=== PATIENT | female | born 2000 | race Caucasian/White ===

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

== ENCOUNTER 2024-06-06 10:12 | Outpatient (CLI) | payer OTHER, SELFPAY ==
--- NOTE | 2024-06-06 10:00 | CRLHL7_ITS ---
For Patients: As a result of the Century Cures Act, medical imaging exams and procedure reports are released immediately into your electronic medical record. You may view this report before your referring provider. If you have questions, please contact your health care provider. OB ULTRASOUND LESS THAN 14 WEEKS, 06/06/2024 CLINICAL HISTORY: Dating, viability. COMPARISON: None. TECHNIQUE: Real time whaley scale imaging of the fetus was performed transvaginally. FINDINGS: LMP: 04/08/2024. YUDELKA by LMP: 01/13/2025. GA: 8 weeks 3 days. CRL: 2.7 cm, 9 weeks 4 days. YUDELKA: 01/05/2025. FHR: 183 bpm. GEST SAC: 4.3 cm, appears within normal limits. YOLK SAC: 3.6 cm, appears within normal limits. RIGHT OVARY: Not visualized. LEFT OVARY: Not visualized. IMPRESSION: 1. Single living intrauterine measuring 9 weeks 4 days and sonographic due date 01/05/2025. 2. Subchorionic hemorrhage measures 3.0 x 0.8 x 3.5 cm. 3. Ovaries not visualized. Peterson Cazares M.D. Diagnostic Radiologist [email or web address] Transcribed: 12:42 pm DW/Dictated by: Peterson Cazares MD @ 06/06/2024 12:07:00 PM (Electronically Signed)
== END 2024-06-06 10:13 | disposition home or self-care (01) ==
LOC: US 10:13
PROVIDERS: Visit Provider Physician Assistant
DX: Z34.91 Encounter for supervision of normal pregnancy, unspecified, first trimester (principal); O20.9 Hemorrhage in early pregnancy, unspecified; Z3A.09 9 weeks gestation of pregnancy
CPT/HCPCS: 76817; 83021; 86592; 86701; 86702; 86703; 86704; 86706; 86762; 86787; 86803; 86850; 86900; 86901; 87086; 87340; 87491; 87591

== ENCOUNTER 2024-06-06 11:23 | Outpatient (CLI) | payer OTHER, SELFPAY ==
[2024-06-06 17:33] LABS: Chlamydia DNA Amplified* NOT DETECTED (No Detected); GC DNA Amplified* NOT DETECTED (No Detected)
== END 2024-06-06 11:24 | disposition home or self-care (01) ==
PROVIDERS: Visit Provider Physician Assistant
DX: Z34.01 Encounter for supervision of normal first pregnancy, first trimester (principal)
CPT/HCPCS: 83020; 83021; 85660; 86592; 86701; 86702; 86703; 86704; 86706; 86762; 86787; 86803; 86850; 86900; 86901; 87086; 87340; 87491; 87535; 87538; 87591

== ENCOUNTER 2024-07-04 11:12 | Outpatient (CLI) | payer OTHER, SELFPAY | END 2024-07-04 11:13 | disposition home or self-care (01) | LOC: NFLDREF 11:15 | PROVIDERS: Visit Provider Obstetrics & Gynecology | DX: F12.20 Cannabis dependence, uncomplicated (principal) | CPT/HCPCS: 80306 ==

== ENCOUNTER 2024-08-22 07:08 | Outpatient (CLI) | payer OTHER, MEDICAID, SELFPAY ==
--- NOTE | 2024-08-22 07:15 | CRLHL7_ITS ---
For Patients: As a result of the Century Cures Act, medical imaging exams and procedure reports are released immediately into your electronic medical record. You may view this report before your referring provider. If you have questions, please contact your health care provider. OB ULTRASOUND GREATER THAN 14 WEEKS, 08/22/2024 CLINICAL HISTORY: anatomic survey. COMPARISON: None. TECHNIQUE: Real time whaley scale imaging of the fetus was performed. Evaluate anatomy. Transabdominal imaging performed. FINDINGS: LMP: 04/08/2024. YUDELKA by US: 01/05/2025. GA: 20 weeks 2 days. POSITION: Breech. PLACENTA/CORD: Placenta Position: Anterior. Placenta tip to internal OS: 5.1 cm. Umbilical Cord: 3 vessel cord. Placental Insertion: Central. AMNIOTIC FLUID: 4.4 cm SDP. CERVIX: Visualized. Technique: TA. Length of closed cervix: 3.8 cm. OBSERVED STRUCTURES: Calvarium/Spine: Cerebellum 2.1 cm, 21 weeks 2 days Cisterna Magna 7.2 mm Nuchal Fold 5.7 mm Lateral Ventricle 6.6 mm CSP Midline Falx Choroid Plexus Spine Abdomen: Stomach Abd Cord Insert Urinary Bladder Kidneys Face: Nose/Lips Orbital View Limbs: Upper Extremities Lower Extremities Hands Feet Vascular: 4 Ch Heart LVOT IMPRESSION: 1. Left renal pelvis measures 4 mm. Right renal pelvis measures 3.4 mm. Follow-up in the third trimester recommended. 2. Incomplete visualization of the diaphragm, profile and RVOT due to position. Short-term follow-up recommended. 3. Concordance of clinical and sonographic dating. Peterson Cazares M.D. Diagnostic Radiologist [email or web address] Transcribed: 11:33 am DW/Dictated by: Peterson Cazares MD @ 08/25/2024 6:32:00 AM (Electronically Signed)
== END 2024-08-22 07:09 | disposition home or self-care (01) ==
PROVIDERS: Visit Provider Obstetrics & Gynecology
DX: Z34.92 Encounter for supervision of normal pregnancy, unspecified, second trimester (principal); Z3A.20 20 weeks gestation of pregnancy
CPT/HCPCS: 76805

== ENCOUNTER 2024-09-12 09:55 | Outpatient (CLI) | payer OTHER, MEDICAID, SELFPAY ==
--- NOTE | 2024-09-12 10:00 | CRLHL7_ITS ---
For Patients: As a result of the Century Cures Act, medical imaging exams and procedure reports are released immediately into your electronic medical record. You may view this report before your referring provider. If you have questions, please contact your health care provider. OB ULTRASOUND SURVEY LMP: 04/08/2024. YUDELKA by US: 01/05/2025. GA: 23 w, 4 d. Single Comparison: 08/22/2024 and 06/06/2024. INDICATION: Follow-up anatomy. TECHNIQUE: Real time grayscale imaging of the fetus was performed. Transabdominal. CERVIX: Visualized. Measurement: 3.4 cm. POSITIONING: Vertex, multiple. AMNIOTIC FLUID: 5.6 cm. SDP (N: greater than 2 x 1 cm) PLACENTA: Technique: Transabdominal. PLACENTA POSITION: Anterior. DOPPLER: heart rate: 145 bpm. IMPRESSION: 1. Normal diaphragm, RVOT, and profile. 2. Right renal pelvis measures 3.1 mm. Left renal pelvis measures 4.7 mm. Third trimester follow-up again recommended. Peterson Cazares M.D. Diagnostic Radiologist [email or web address] GUERA/[email or web address] rankin/Dictated by: Peterson Cazares MD @ 09/12/2024 4:06:00 PM (Electronically Signed)
--- OUTSIDE RECORDS SUMMARY | 2024-09-13 00:29 | XMS_ITS | Clinical Summary ---
Author Organization [facility] Address [address] [place] [id number] Care Team Providers Care Project Accountant Name Role Phone Ayse Rodrigues MD Primary Care Provider Allergies No known active allergies Medications ondansetron 4 mg disintegrating tabletIndications:N ausea DISSOLVE 1 TABLET(4 MG) ON THE TONGUE EVERY 8 HOURS NEEDED FOR NAUSEA OR VOMITING 14 Tablet 5 Active Active Problems Problem Noted Date Diagnosed Date History of reactive airway disease 05/29/2016 Overview (05/29/2016): Per patient and family, had albuterol for 1 episode of wheezing in the past. Encounters Date Type Department Care Team Description 07/14/[address] [facility] [address] [place] [address] Chrissy Chavira 1 scan: (1-Ord) Zio 07/10/2024 1:30 PM CDT Office Visit [facility] [address] [place] [address] Giorgio Talbert MD 06/17/2024 Telephone [facility] [address] [place] [address] Tereza Meredith DO Appointment from Last 3 Months Immunizations Immunization Administration Dates Next Due DTaP-IPV (Kinrix) 04/11/2007 HPV 9 (Gardasil 9) 10/27/2014 Inactivated Polio Vaccine 04/11/2007 Influenza A (H1N1), Inactivated 01/14/2009 Influenza, IIV4 (=>6mos) MDV 01/06/2020 MENINGOCOCCAL VACCINE 2 VIAL 2MO-55YO (MENVEO) 1 03/27/2017,10/27/2014 MMR 01/25/2018,04/11/2007 Tdap 10/27/2014 Varicella Vaccine 04/11/2020,04/11/2007 Family History Medical History Relation Name Comments Asthma Brother 1 No Known Problems Father No Known Problems Mother Relation Name Status Comments Brother 1 Alive Brother 2 Alive Father Alive Mother Alive Sister Alive Social History Tobacco Use Types Packs/Day Years Used Date Smoking Tobacco: Never Smokeless Tobacco: Never Tobacco Cessation:Counseling Given: Not Answered Alcohol Use Standard Drinks/Week Comments Not Currently 0 (1 standard drink = 0.6 oz pur e alcohol) PHQ-2 Answer Date Recorded PHQ-2 TOTAL SCORE 1 06/22/2022 Social Connections Answer Date Recorded Frequency of Communication with Friends and Fami ly 0 06/22/2022 Financial Resource Strain Answer Date R ecorded Difficulty of Paying Living Expenses 3 06/22/2022 Difficulty of Paying Living Expenses Not on file 06/22/2022 Food Insecurity Answer Date Recorded Worried About Running Out of Food in the Last Ye ar 2 06/22/2022 Transportation Needs Answer Date Record ed Lack of Transportation (Medical) 1 06/22/2022 Housing Stability Answer Date Recorded Unable to Pay for Housing in the Last Year 1 06/22/2022 Interpersonal Safety Answer Date Record ed Are you being hit, kicked, p ushed or yelled at (see row info)? No 09/30/2023 Interpersonal Safety Abuse 12 - 18 Not on file 09/30/2023 Interpersonal Safety Ambulatory Vulnerability No t on file 09/30/2023 Comments No Sex and Gender Information Value Date Recorded Sex Assigned at Not on file Legal Sex Female 5:26 AM AFLOAT CRYPTOLOGIC MANAGER Gender Identity Not on file Sexual Orientation Not on file Obstetrics History Last Filed Vital Signs Vital Sign Reading Time Taken Comments Blood Pressure 100/68 05/16/2024 8:33 AM AFLOAT CRYPTOLOGIC MANAGER Pulse 72 05/16/2024 8:33 AM AFLOAT CRYPTOLOGIC MANAGER Temperature 36.7 C (98.1 F) 04/05/2024 2:00 PM AFLOAT CRYPTOLOGIC MANAGER Respiratory Rate 14 04/05/2024 2:00 PM AFLOAT CRYPTOLOGIC MANAGER Oxygen Saturation 97% 04/05/2024 2:00 PM AFLOAT CRYPTOLOGIC MANAGER Inhaled Oxygen Concentration - - Weight 104.4 kg (230 lb 3.2 oz) 05/16/2024 8:33 AM AFLOAT CRYPTOLOGIC MANAGER Height 158.8 cm (5' 2.5) 09/30/2023 10 :02 AM CDT Body Mass Index 41.43 09/30/2023 10:02 AM CDT Plan of Treatment Health Maintenance Due Date Last Done Comments HPV series for age 9-26 (2 - 2-dose series) 04/29/2015 10/27/2014 HIV for age 15-65 2017 Hepatitis C screening for ag e 18-79 2020 Hepatitis B series for 19+ ( 1 of 3 - 19+ 3-dose series) 2021 Pap test for age 21-65 2023 BMI (ht and wt on same day) for age 18+ 06/23/2023 06/22/2022 Depression screening for age 12+ 06/23/2023 06/22/2022, 08/20/2017, 05/29/2016 COVID-19 vaccine series ( - season) 2023 Chlamydia for age 16-24 10/15/2024 10/16/19 24, 04/25/2022 Tetanus booster 10/27/2024 10/27/2014 Influenza Vaccine (Season Ended) 2024 01/06/2020 Tdap Completed 10/27/2014 Pneumococcal series for age 6-49 Aged Out No longer eligible b ased on patient's age to complete this topic Procedures Procedure Name Priority Date/Time Associated Diagnosis Comments EXTENDED HOLTER Routine 07/04/2024 Syncope and collapse GC CHLAMYDIA TRACH PROBE Add On 10/16/2023 2:13 PM CDT Vaginal discharge from Last 3 Months or Most Recently Relevant to Health Maintenance Results * EXTENDED HOLTER (07/04/2024) us Renetta Morales MD CARDIAC SERVICES ORD Fin al Result * Vaginal GC CHLAMYDIA TRACH PROBE (10/16/2023 2:13 PM CDT) CHLAMYDIA PROBE Negative 5:44 PM CDT [facility] N GONORRHOEAE PROBE Negative 10/17/2023 5:44 PM CDT [facility] Other VAGINAL SWAB / Unknown Add On / Unknown 10/16/2023 2:13 PM CDT 10/16/2023 2:28 PM CDT us Milagro Patterson NP MICROBIOLOGY Final Result [facility] [address] [place] [address], [place] from Last 3 Months or Most Recently Relevant to Health Maintenance Insurance [employer] [place] [id number] [employer] Care Teams Project Accountant Relationship Specialty Start Date End Date Ayse Rodrigues MD [address] [place] [address] PCP - General Family Practice 06/22/22
== END 2024-09-12 09:56 | disposition home or self-care (01) ==
LOC: US 09:55
PROVIDERS: Visit Provider Obstetrics & Gynecology
DX: Z34.92 Encounter for supervision of normal pregnancy, unspecified, second trimester (principal); Z3A.23 23 weeks gestation of pregnancy
CPT/HCPCS: 76816

== ENCOUNTER 2024-10-10 08:15 | Outpatient (CLI) | payer OTHER, MEDICAID, SELFPAY | END 2024-10-10 08:16 | disposition home or self-care (01) | LOC: NFLDREF 10-14 05:59 | PROVIDERS: Visit Provider Obstetrics & Gynecology | DX: Z34.03 Encounter for supervision of normal first pregnancy, third trimester (principal) | CPT/HCPCS: 86592 ==

== ENCOUNTER 2024-10-24 11:15 | Outpatient (CLI) | payer OTHER, MEDICAID, SELFPAY | END 2024-10-24 11:16 | disposition home or self-care (01) | PROVIDERS: Visit Provider Obstetrics & Gynecology | DX: O99.323 Drug use complicating pregnancy, third trimester (principal); F12.20 Cannabis dependence, uncomplicated; Z3A.29 29 weeks gestation of pregnancy | CPT/HCPCS: 80306 ==

== ENCOUNTER 2024-11-14 10:01 | Outpatient (CLI) | payer OTHER, MEDICAID, SELFPAY ==
--- NOTE | 2024-11-14 10:00 | CRLHL7_ITS ---
For Patients: As a result of the Cures Act, medical imaging exams and procedure reports are released immediately into your electronic medical record. You may view this report before your referring provider. If you have questions, please contact your health care provider. OB ULTRASOUND FOLLOW-UP/LIMITED, 11/14/2024 CLINICAL HISTORY: Follow-up renal pelvis dilation. COMPARISON: 08/22/2024. TECHNIQUE: Real time whaley scale imaging of the fetus was performed. Transabdominal imaging performed. FINDINGS: YUDELKA by US: 01/05/2025. GA: 32 weeks 4 days. Gestation: Single. Cervix: Not visualized. Positioning: Vertex. Amniotic Fluid: 6.0 cm SDP. Placenta: Technique: TA. Placenta Position: Anterior. Dopplers: Heart Rate: 132 bpm. IMPRESSION: The left renal pelvis measures 6.2 mm and the right renal pelvis measures 3.5 mm. This is considered within normal limits at this gestational age. Peterson Cazares M.D. Diagnostic Radiologist [email or web address] Transcribed: 1:43 pm DW/Dictated by: Peterson Cazares MD @ 11/14/2024 12:54:00 PM (Electronically Signed)
== END 2024-11-14 10:02 | disposition home or self-care (01) ==
LOC: US 10:03
PROVIDERS: Visit Provider Obstetrics & Gynecology
DX: O35.8XX0 Maternal care for other (suspected) fetal abnormality and damage, not applicable or unspecified (principal); Z3A.32 32 weeks gestation of pregnancy
CPT/HCPCS: 76816

== ENCOUNTER 2024-11-28 08:25 | Outpatient (CLI) | payer OTHER, MEDICAID, SELFPAY | END 2024-11-28 08:26 | disposition home or self-care (01) | LOC: NFLDREF 12-08 04:31 | PROVIDERS: Visit Provider Obstetrics & Gynecology | DX: Z34.93 Encounter for supervision of normal pregnancy, unspecified, third trimester (principal); Z3A.34 34 weeks gestation of pregnancy | CPT/HCPCS: 82728 ==

== ENCOUNTER 2024-12-19 08:01 | Outpatient (CLI) | payer OTHER, MEDICAID, SELFPAY ==
--- NOTE | 2024-12-19 08:15 | CRLHL7_ITS ---
For Patients: As a result of the Cures Act, medical imaging exams and procedure reports are released immediately into your electronic medical record. You may view this report before your referring provider. If you have questions, please contact your health care provider. OB ULTRASOUND YUDELKA by US: 01/05/2025. GA: 37 w, 4 d. Single. Comparison: 12/12/2024, 11/14/2024, 09/12/2024. INDICATION: BMI. TECHNIQUE: Real time grayscale imaging of the fetus was performed. Transabdominal. CERVIX: Not visualized. POSITIONING: Vertex. AMNIOTIC FLUID: 5.9 cm. SDP (N: greater than 2 x 1 cm) BIOPHYSICAL PROFILE: 2: Gross body movements 2: tone 2: Respiratory activity 2: Amniotic fluid SDP (N: greater than 2 x 1 cm) 8/8: Total score PLACENTA: Technique: Transabdominal. PLACENTA POSITION: Anterior. DOPPLER: heart rate: 147 bpm. IMPRESSION: Normal biophysical profile score 8/8. Peterson Cazares M.D. Diagnostic Radiologist [email or web address] GUERA/[email or web address] rankin/Dictated by: Peterson Cazares MD @ 12/19/2024 10:45:00 AM (Electronically Signed)
== END 2024-12-19 08:02 | disposition home or self-care (01) ==
LOC: US 08:02
PROVIDERS: Visit Provider Obstetrics & Gynecology
DX: Z34.93 Encounter for supervision of normal pregnancy, unspecified, third trimester (principal); Z3A.37 37 weeks gestation of pregnancy
CPT/HCPCS: 76819

== ENCOUNTER 2024-12-26 08:08 | Outpatient (CLI) | payer OTHER, MEDICAID, SELFPAY ==
--- NOTE | 2024-12-26 08:15 | CRLHL7_ITS ---
For Patients: As a result of the Cures Act, medical imaging exams and procedure reports are released immediately into your electronic medical record. You may view this report before your referring provider. If you have questions, please contact your health care provider. OB ULTRASOUND BIOPHYSICAL PROFILE CLINICAL HISTORY: BMI. TECHNIQUE: Real time whaley scale imaging of the fetus was performed. Transabdominal imaging performed. FINDINGS: YUDELKA by US: 01/05/2025. GA: 38 weeks 4 days. Gestation: Single. Cervix: Not visualized. Positioning: Vertex. Amniotic Fluid: 4.1 cm SDP. BIOPHYSICAL PROFILE Gross Body Movements: 2 Tone: 2 Respiratory Activity: 2 Amniotic Fluid SDP: 2 Total Score: 8 Placenta: Technique: TA. Placenta Position: Anterior. Dopplers: Heart Rate: 141 bpm. IMPRESSION: Normal biophysical profile score of 8/8. Peterson Cazares M.D. Diagnostic Radiologist [email or web address] Transcribed: 10:45 am DW/Dictated by: Peterson Cazares MD @ 12/26/2024 10:15:00 AM (Electronically Signed)
== END 2024-12-26 08:09 | disposition home or self-care (01) ==
LOC: US 08:08
PROVIDERS: Visit Provider Obstetrics & Gynecology
DX: O99.213 Obesity complicating pregnancy, third trimester (principal); Z3A.38 38 weeks gestation of pregnancy
CPT/HCPCS: 76819

== ENCOUNTER 2025-01-01 06:48 | Inpatient (IN) | payer OTHER, MEDICAID, SELFPAY ==
[2025-01-01] VITALS (80 sets, daily range): BP systolic 89–187; BP diastolic 50–106; PULSE 62–179; RESP 16–22; TEMP 36.2–37.1; O2SAT 82–100; BMI 40.4
[2025-01-01] MEDS: ONDANSETRON 2 MG/ML inj 4 MG IV (07:13)
[2025-01-01 08:05] LABS: Hematocrit* 39.7 % (33.0-51.0); Hemoglobin* 12.7 gm/dL (12.0-16.0); Immature Granulocytes Pct Auto 0.2 %; Mean Corpuscular HGB Conc 32 gm/dL (32-36); Mean Corpuscular Hemoglobin 28 pg (26-34); Mean Corpuscular Volume 86 fL (80-100); RDW Coefficient of Variation % 21.8 % (11.5-15.5); Red Blood Count* 4.60 m/uL (4.00-5.20); White Blood Count* 11.67 K/uL (4.50-11.00)
[2025-01-01 08:13] LABS: Immature Granulocytes Abs Auto 0.00 K/uL (0.00-0.30); Lymphocytes Absolute Auto 1.90 K/uL (0.90-2.90); Slide Review Reflex No
[2025-01-01] MEDS: LACTATED RINGERS 1000 ML 1,000 ML IV (12:25)
--- NOTE | 2025-01-01 12:37 | P.LDBA_ITS ---
Subjective History of Present Illness Time Seen by Provider: 12:37 Date Seen: 01/01/25 Narrative: Patient is being admitted to Labor and Delivery for spontaneous labor. She is a 24 year old at 39.3 weeks gestation. Her full history and physical was dictated by Dr. Toussaint on 12/12/24. Please see this for details. Active movement. Denies LOF, vaginal bleeding or abnormal vaginal discharge. Strong, painful, regular contractions. Specific Issues/Plans Partner: Paternity is in question [place]: low risk female! Negative carrier screening. H&P: Dr. Toussaint on 12/12/2024 # obesity, BMI 39.6 Hemoglobin A1c: 5.1 ASA 81mg recommended 07/04 Growth scan at 32-36 weeks: ordered BPP Qweekly starting at 37 weeks surveillance filled out # dilated left renal pelvis (4.7mm on 09/12/24) * Repeat US in third trimester: Left 0.6 cm, right 0.4 cm * follow-up will likely be recommended. #THC in #Daily alcohol use prior to positive test Discussed risks of marijuana use in . She plans on discontinuing [x] 30 week UDS: negative - 07/04: only THC positive - Pt notes she is established with [facility] # exercise-induced asthma #pre syncope, ?POTS - Sx resolved as of 10/24 [x] zio without acute findings (rare ectopy) Imagin08/22/24: FAS - 1. Left renal pelvis measures 4 mm. Right renal pelvis measures 3.4 mm. Follow-up in the third trimester recommended. 2. Incomplete visualization of the diaphragm, profile and RVOT due to position. Short- term follow-up recommended. 09/12/2024: Vertex presentation, diaphragm, RVOT, and profile visualized and normal, right renal pelvis 3.1 mm, left renal pelvis dilated at 4.7 mm, SDP 5.6 cm, cervix 3.4 cm. 11/14/24: Vertex, SDP 6 cm, left renal pelvis 0.6 cm, right renal pelvis 0.4 cm. 12/12/24: Vertex, SDP 3.9 cm, EFW 3088 g or 6 lb 13 oz (66%), BPD 26%, HC 39%, AC 94%, FL 12% Vaccinations: COVID: Declined Flu: Declined Tdap: 10/24 RSV:11/28/24 32 week mental health: 11/14/2024 Last pap: Due for 1st Pap, she deferred until OB - Problem Based A/P Additional Plan (1) : Status: Acute (2) Exercise-induced asthma: Status: Acute (3) Spontaneous onset of labor: Status: Acute Plan - Augmentation of labor - Recheck in 4 hours or PRN - Epidural per patient's preference OB Exam Physical Exam Vital signs: Temp Pulse Resp BP Pulse Ox 97.8 F 123 H 20 127/86 97 01/01/25 11:29 01/01/25 10:22 01/01/25 11:29 01/01/25 10:22 01/01/25 03:20 Narrative: Physical exam: General: No acute distress Psych: Alert and oriented x3, full affect HEENT: Normocephalic, atraumatic Lungs: Unlabored breathing Neuro: No focal deficit. Mentating appropriately Pelvic exam: 3/75/-2, soft, mid position. Patient counseled on AROM vs pitocin due to minimal change after 3 hrs of expectant management. Patient prefers AROM at this time. AROM @1010 with patient's consent. Clear fluid.
[2025-01-01] MEDS: LIDOCAINE 2% (PF) 5 ML VIAL EPIDURAL (13:12)
[2025-01-01] MEDS: ROPIVACAINE 0.2% 100 ml 100 ML 12 MG EPIDURAL (13:20)
--- NOTE | 2025-01-01 13:29 | PM.ANBPRC ---
[facility] Medical History ADHD, predominantly inattentive type ?F90.0 - Attention-deficit hyperactivity disorder, predominantly inattentive type (ICD-10) Mesenteric lymphadenitis ?I88.0 - Nonspecific mesenteric lymphadenitis (ICD-10) Maternal substance abuse ?O99.320 - Drug use complicating , unspecified trimester (ICD-10) ?F19.10 - Other psychoactive substance abuse, uncomplicated (ICD-10) Intentional overdose of selective serotonin reuptake inhibitor (SSRI) ?T43.222A - Poisoning by selective serotonin reuptake inhibitors, intentional self-harm, initial encounter (ICD-10) Alcoholic intoxication ?F10.929 - Alcohol use, unspecified with intoxication, unspecified (ICD-10) Surgical History History of nasal surgery ?Z98.890 - Other specified postprocedural states (ICD-10) History of adenoidectomy ?Z90.89 - Acquired absence of other organs (ICD-10) Family History Family/Other Breast cancer Family/Other Diabetes Family/Other Alcohol dependence Family/Other High blood pressure Diabetes Father Seizure disorder Social History Narrative: SOCIAL HISTORY: Occupation: Unemployed . Marital status: Significant other. Sikhism/cultural needs: no. Chemical or radiation exposure: no. Pre- tobacco use: no. Pre- alcohol use: no. Current tobacco use: no. Current alcohol use: no. Recreational drug use: Yes, marijuana. Dietary restrictions: no. Blood transfusion acceptable in an emergency: yes. PSYCHOSOCIAL HISTORY: History of depression or currently depressed: Yes, history. Current or past physical, emotional, or sexual mistreatment: Denies. Problems that will make it hard to make it to appointments: Denies. What is your current living situation?: I presently have a place to live Problems where you live: no known problems In the past 12 months, utilities in danger of being shut off: no In past 12 months, lack of transportation kept you from medical appts, meetings, work, or getting things needed for daily living: no In the past 12 mos, have been you worried that your food would run out before you had money to buy more?: never true In the past 12 mos, the food you bought just didn't last and you didn't have money to buy more?: sometimes true Smoking Status: Former smoker How often does anyone, including family, friends and others, physically hurt you: never How often does anyone, including family, friends and others, insult or talk down to you: never How often does anyone, including family, friends and others, threaten you with harm: never How often does anyone, including family, friends and others, scream or curse at you: never Health Related Social Needs: food insecurity (Z59.41) Meds Home Medications and Allergies Home Medications ?Medication ?Instructions ?Recorded ?Confirmed ?Type [id number] 3 fatty no.1 27 1 cap PO DAILY 06/06/24 01/01/25 History mg-1 mg-300 mg capsule ferrous sulfate 325 mg (65 mg 325 mg PO QMWF #30 tabs 10/10/24 01/01/25 Rx iron) tablet Allergies Allergy/AdvReac Type Severity Reaction Status Date / Time No Known Allergies Allergy Unknown Verified 01/01/25 07:53 Results Labs Labs: Laboratory Results - last 24 hr 01/01/25 07:57 WBC 11.67 H RBC 4.60 Hgb 12.7 Hct 39.7 MCV 86 MCH 28 MCHC 32 RDW Coeff of Rey 21.8 H Plt Count 254 Neut % (Auto) 78.0 H Lymph % (Auto) 16.0 L Beadle % (Auto) 5.4 Eos % (Auto) 0.1 Baso % (Auto) 0.3 Neut # (Auto) 9.10 H Lymph # (Auto) 1.90 Beadle # (Auto) 0.60 Eos # (Auto) 0.00 Baso # (Auto) 0.00 Abs Immat Gran (auto) 0.00 Imm/Tot Granulo (auto) 0.2 Blood Type O Positive Antibody Screen NEGATIVE Vital Signs Vital Signs: Last Vital Signs Temp 98.7 F 01/01/25 12:30 Pulse 118 H 01/01/25 13:27 Resp 16 01/01/25 12:30 BP 136/73 01/01/25 13:27 Pulse Ox 99 01/01/25 13:24 Weight: 103.419 kg Height: 160.02 cm Anesthesia Procedures Epidural Insertion Patient Location: OB Start Time: 12:30 Stop Time: 13:30 Start Date: 01/01/25 Stop Date: 01/01/25 Reason for Block: procedure for pain Patient Position: sitting Performed By: Chrissy Ruiz Preanesthetic Checklist: IV checked, risks and benefits discussed, monitors and equipment checked, pre-op evaluation, timeout performed and anesthesia consent Prep: chlorhexidine gluconate Monitoring: blood pressure monitoring, continuous pulse oximetry and heart rate Approach: midline Vertebral Space: lumbar (1-5) Epidural Technique: CARMITA saline Needle Type: Tuohy needle Injection Technique: continuous catheter Needle gauge: 17 Needle Length (cm): 10 cm Needle Insertion Depth (cm): 7 Catheter Gauge: 19 Catheter Type: multi-orifice Catheter at skin depth (cm): 13 Test Dose Result: negative and lidocaine 1.5% with epinephrine 1 to 200,000
[2025-01-01] MEDS: LACTATED RINGERS 1000 ML 1,000 ML 125 ML IV (13:34)
[2025-01-01] MEDS: PHENYLEPHRINE 100 MCG/ML SYRINGE IVP ×2 (13:55→14:27)
[2025-01-01] MEDS: OXYTOCIN 30 unit/500 ML in NS 30 UNIT/500 ML BAG IVPB (14:32)
[2025-01-01] MEDS: CALCIUM CARBONATE 500 MG CHEW PO (15:56)
[2025-01-01] MEDS: LACTATED RINGERS 1000 ML 1,000 ML 1125 ML IV (16:26)
[2025-01-01] MEDS: AZITHROMYCIN 500 MG in 0.9 % SODIUM CHLORIDE 250 ml 250 ML 255 MG IVPB (17:00)
--- NOTE | 2025-01-01 17:21 | CRLHL7_ITS ---
For Patients: As a result of the Cures Act, medical imaging exams and procedure reports are released immediately into your electronic medical record. You may view this report before your referring provider. If you have questions, please contact your health care provider. Indication: Emergent . Check for surgical sponges Technique: One view of the abdomen Comparison: None. Findings/Impression: A surgical sponge projects over the right hemipelvis. Enlarged uterus. No acute osseous abnormality. Dictated by Lin Gallardo MD @ 01/01/2025 6:14:56 PM (Electronically Signed)
[2025-01-01] MEDS: TERBUTALINE 1 MG/ML INJ 0.25 MG SUBCUT (17:43)
--- NOTE | 2025-01-01 18:55 | SUR.PHASEI ---
Patient meets discharge criteria from PACU I
--- NOTE | 2025-01-01 19:03 | P.ANES_ITS ---
Anesthesia Charges Start Date/Time Anesthesia Start Date: 01/01/25 Anesthesia Start Time: 16:52 Stop Date/Time Anesthesia Stop Date: 01/01/25 Anesthesia Stop Time: 18:11 Summary Emergency: COSMETIC SALES Coding CPT Codes CPT Codes: ANES/ANALG CS DELIVER ADD-ON - 43197 ([id number]) P3 - PATIENT W/SEVERE SYS DISEASE, QZ - COSMETIC SALES SVC W/O COLLECTION DEVELOPMENT LIBRARIAN BY Additional Codes: Summary - Emergency: COSMETIC SALES ([id number])
--- NOTE | 2025-01-01 19:03 | W.ANESCHARGE ---
Anesthesia Charges Start Date/Time Anesthesia Start Date: 01/01/25 Anesthesia Start Time: 16:52 Stop Date/Time Anesthesia Stop Date: 01/01/25 Anesthesia Stop Time: 18:11 Summary Emergency: ESTIMATOR LUMBER Coding CPT Codes CPT Codes: ANES/ANALG CS DELIVER ADD-ON - 42586 ([id number]) P3 - PATIENT W/SEVERE SYS DISEASE, QZ - ESTIMATOR LUMBER SVC W/O TEST PILOT BY Additional Codes: Summary - Emergency: ESTIMATOR LUMBER ([id number])
--- NOTE | 2025-01-01 19:06 | W.PM.NB ---
Nerve Block Nerve Block Time Seen by Provider: 17:50 Date Seen: 01/01/25 Type of block requested by surgeon for post-operative analgesia: TAP Side: bilateral Time out performed: Yes Verification of patient name: Yes Verification of date of : Yes Name of person performing procedure: s deric Continuous monitoring Was continuous monitoring of O2 sat, B/P, groundwater monitoring technician, recorded every 15 minutes?: Yes Procedure Checklist: sterile prep, needles and gloves Ultrasound guided. Images saved: Yes Medications given in 5ml increments after negative aspiration: Marcaine %: 0.25 mL: 30 Needle gauge: 20 and Exparel mL: 10 Needle gauge: 20 Patient tolerated procedure well: Yes Block Charges Block Charge (with Pro Fee): TAP Bilateral Use of Ultrasound Machine for Block: Yes- US Guidance/pain block
--- NOTE | 2025-01-01 19:51 | PM.OBPRCCS ---
Procedure Time Seen by Provider: 16:00 Date of procedure: 01/01/25 Procedure Done: Global Will [facility] bill your pro fee for this procedure?: Yes IV fluids (mL): 1,000 Urine Output (mL): 400 Urine Output Comment: Sola color prior to Procedure Description: DELIVERY BY SECTION Date of Service: 01/01/25 Delivery time: 1704 Summary: Admitted for spontaneous labor at 39w3d. Patient's labor was progressing well until 1636 when prolonged deceleration down to 90 bpm was noted for approximately 5 minutes with brief recovery into 130s bpm. Pitocin was at 6u at the time and was turned off. Patient repositioned and FSE placed. Dilation was 8 cm but deceleration noted down to 70s with every contract. heart rate intermittently increased to 180s bpm with precipitous drop back down to the 70s bpm. 0.25 mg Terbutaline given @ 1743. Code white called as heart rate continued to be in 70s. Melvi and family was debriefed on the situation and need for an emergency delivery if heart tones continued to be down in the OR. Melvi gave verbal consent but requested a low threshold to undergo general anesthesia if she has any discomfort with the epidural at all. heart tones were still in the 70s upon arrival to the OR. Decision made to do splash prep emergency delivery. Primary Lower uterine transverse section, Pfannenstiel, Closed with sutures, QBL 731 cc, No complications, Findings: Normal uterus, bilateral ovaries and tubes 8/9 weight 3445 g. Primary Indication: 1. Terminal bradycardia to the 70 bpm Procedures: Primary Lower uterine transverse section Specimens Removed: Placenta Surgeon: Ashleigh Nieto MD Anesthesia: Initial epidural then converted to general anesthesia due to inadequate pain control Report: Prophylactic antibiotic, 2 g of Ancef and 500 mg of azithromycin were given before incision. After arrival to the operating room patient was placed in the supine position with left lateral tilt. Epidural anesthesia was determined to be inadequate for pain control at that time. Decision made to convert to general anesthesia. She was splash prepped and draped in a sterile manner. Laparotomy A pfannenstiel incision was made through the anterior abdominal wall with #10 scalpel approximately 2 cm above the pubic symphysis. The incision was extended sharply with the #10 scalpel through the subcutaneous tissue to the level of fascia. The fascia was entered sharply with a #10 scalpel (Pfannenstiel) in the midline and extended in semi-elliptical fashion bluntly with digits. The rectus muscles were in the midline bluntly with digits. Harris Roberts technique employed. The peritoneum was then entered bluntly. The peritoneal incision was then extended superiorly and inferiorly under direct visualization with care being taken to avoid bladder and bowel. No adhesions were noted. The peritoneal incision was enlarged bluntly by lateral traction from the surgeon's and educational program assistant's hand. Delfino retractor was inserted into the abdomen. Delivery A bladder flap was not developed as it was low of the lower uterine segment. A low transverse hysterotomy was made then with #10 scalpel and extended laterally and cephalad with fingers in a low transverse fashion with Manu Mejia technique with care being taken to avoid injury to the fetus. The amniotic cavity (membrane) was then entered with spontaneous rupture of membrane, and the amniotic fluid was noted to be clear, fetus was delivered cephalic. With delivery of the baby, no extension was noted. Placenta was delivered spontaneously with steady traction on cord and manual separation of placenta from uterine wall. Closure Uterine cavity was cleaned after placental delivery with lap sponge x 2. The hysterotomy was closed in two layers with stitches using 0 vicryl with continuous locking stitches and 0 monocryl in a continuous non locking manner. Hemostasis was achieved as needed with electrocautery. The ovaries/tubes/uterine surface were evaluated. They were found to be normal. Delfino retractor removed and hemostasis was confirmed again. Jean Claude applied on hysterotomy. Fascia was closed with running stitches using 0 vicryl. Subcutaneous layer was irrigated. Hemostasis was checked for and found to be adequate. Abdominal x-ray performed as proper count was not undertaken. No intra-abdominal surgical sponge or instrument noted. A damp surgical sponge was placed over incision during x-ray and accounted for. The subcutaneous layer was closed with running 2-0 chromic sutures. The skin was closed with 4-0 monocryl subcuticular sutures . The incision was cleaned, steri strips applied and silver dressing placed. The procedure considered terminate at this time. Intraoperative Complications: None QBL: 731 cc Uterotonics/hemostatic agents: 40u of pitocin and 1 g of TXA Disposition: The patient tolerated the procedure well. She was recovered in Obstetric PACU for close monitoring in stable condition, with a contracted uterus and normal transvaginal bleeding. The infant was sent to mother?s bedside/PACU. A segment of the cord was obtained for umbilical cord gases. The placenta was sent to pathology. Cord gases ABG: pH 7.21, pCO2 61, HCO3 24, Base excess -4.9 VBG unable to be obtained Debrief with OR team performed, count verified and specimen reviewed at the conclusion of the procedure. Melvi and her family were debriefed on the details of the emergent event. They are grateful for their care and had no additional questions. Howard total score - 1 minute: 8 total score - 5 minute: 9
[2025-01-01] MEDS: ACETAMINOPHEN 500 MG TABLET 1000 MG PO (21:00)
[2025-01-01] MEDS: CEFAZOLIN 2 GM in 0.9 % SODIUM CHLORIDE Mini-bag 100 ML IVPB (23:34)
[2025-01-02] MEDS: ACETAMINOPHEN 500 MG TABLET 1000 MG PO ×4 (02:51→21:26)
[2025-01-02] MEDS: SIMETHICONE 80 MG TAB.CHEW PO (02:51)
[2025-01-02 03:36] VITALS: BP 118/76; PULSE 95; RESP 20; TEMP 36.4; O2SAT 97
[2025-01-02] MEDS: CEFAZOLIN 2 GM in 0.9 % SODIUM CHLORIDE Mini-bag 100 ML IVPB ×3 (05:30→17:55)
[2025-01-02 06:27] LABS: Hemoglobin* 9.5 gm/dL (12.0-16.0)
[2025-01-02 08:05] VITALS: BP 110/74; PULSE 100; RESP 16; TEMP 36.9; O2SAT 98
[2025-01-02] MEDS: ENOXAPARIN 40 MG/0.4 ML INJ SUBCUT ×2 (09:12→20:24)
[2025-01-02] MEDS: DOCUSATE SODIUM 100 MG CAPSULE PO (09:13)
[2025-01-02 11:55] VITALS: BP 111/75; PULSE 84; RESP 16; TEMP 36.6; O2SAT 98
[2025-01-02 12:03] LABS: HIV 1/2/P24 Combo Screen* Reactive (Negative)
--- NOTE | 2025-01-02 13:55 | PM.OBPNVD1 ---
OB - PN:Subj Subjective Date Seen: 01/02/25 Narrative: deepak is a 24 y.o. G 1 P 1 now who was admitted to [facility] & [facility] for spontaneous labor. ?She had a section that was complicated by.poor pain control and thus needing general anesthesia. The patient feels well. ?The pain is well controlled with current medications. ?She has no new complaints. ?She is breast feeding and reports things are going ok with assistance from networks software consultant. the patient has done well.? Vitals have been stable.? She has remained afebrile.? Has a good appetite, is tolerating a general diet. ?She is voiding without difficulty.? She is passing gas and has not had a bowel movement.? She is ambulating and denies any dizziness.? Has small amount of rubra lochia. Deepak reports she has been up ambulating in the room, and now is currently in bed with SCDs on. no questions or concerns for me. reports was able to sleep well last night. Problems: none OB - PN: Obj Exam Physical Exam: Vital signs: Temp Pulse Resp BP Pulse Ox O2 Del Method 97.9 F 84 16 111/75 98 Room Air 01/02/25 11:55 01/02/25 11:55 01/02/25 11:55 01/02/25 11:55 01/02/25 11:55 01/02/25 11:55 Narrative: GENERAL APPEARANCE:? normal affect, alert, no distress MOOD:? appropriate CHEST:? non labored HEART:? not assessed ABDOMEN:? soft, non-tender the uterine fundus is At Umbilicus, Midline and is appropriate for the stage of recovery. EXTREMITIES:? normal and +1 slightly pitting edema Incision: Healing well, no surrounding erythema, abnormal induration or discharge. dressing c/d/i OB - PN: Obj Data Labs Labs: Laboratory Results - last 24 hr 01/02/25 05:37 Hgb 9.5 L HIV 1&2 Ab/P24 Ag 4thGn Reactive A OB - PN: A/P Delivery Assessment and Plan (1) : Status: Acute (2) Exercise-induced asthma: Status: Acute (3) Spontaneous onset of labor: Status: Acute (4) Lactating mother: Status: Acute (5) care following delivery: Status: Acute Plan day: 1 Comments: PPd 1 Anticipate d/c tomorrow or the following day May see counselor again if needed.
[2025-01-02 16:10] VITALS: BP 115/76; PULSE 100; RESP 16; TEMP 36.6; O2SAT 97
[2025-01-02 23:39] VITALS: BP 94/59; PULSE 114; RESP 18; TEMP 36.9; O2SAT 98
[2025-01-03] MEDS: ACETAMINOPHEN 500 MG TABLET 1000 MG PO ×3 (03:11→16:06)
[2025-01-03] MEDS: IBUPROFEN 600 MG TABLET PO ×2 (05:57→12:48)
[2025-01-03 08:25] VITALS: BP 112/71; PULSE 80; RESP 16; TEMP 36.8; O2SAT 98
[2025-01-03] MEDS: ENOXAPARIN 40 MG/0.4 ML INJ SUBCUT (08:31)
[2025-01-03] MEDS: DOCUSATE SODIUM 100 MG CAPSULE PO (08:39)
--- NOTE | 2025-01-03 09:30 | PM.OBPNVD1 ---
OB - PN:Subj Subjective Date Seen: 01/03/25 Patient comments OB post-: tolerating diet, flatus present and other (Pain moderately controlled, she has not been utilizing Oxycodone, but sounds like she needs to use a bit for better management of pain. ) [place] infant status: Narrative: Melvi is a 24 y.o. who was admitted to L & D in labor for delivery. ?She had an emergency due to non reassuring heart rate tracing.?The patient feels okay. ?The pain is moderately controlled with current medications. She has not been utilizing Oxycodone, but seems like she is struggling with pain a bit-mostly with movement.?She is breast feeding and reports things are not going very well.?She would like to try pumping and given baby bottle with breast milk today. the patient has done well.? Vitals have been stable.? She has remained afebrile.? Has a good appetite, is tolerating a general diet. ?She is voiding without difficulty.? She is passing gas and has not had a bowel movement.? She is ambulating and denies any dizziness.? Has Small amount of rubra lochia. ? OB - PN: Obj Exam Physical Exam: Vital signs: Temp Pulse Resp BP Pulse Ox O2 Del Method 98.5 F 114 H 18 94/59 L 98 Room Air 01/02/25 23:39 01/02/25 23:39 01/02/25 23:39 01/02/25 23:39 01/02/25 23:39 01/02/25 23:39 Narrative: GENERAL APPEARANCE:? normal affect, alert, no distress MOOD:? appropriate CHEST:? clear to auscultation HEART:? regular rate and rhythm ABDOMEN:? soft, non-tender the uterine fundus is At Umbilicus, Midline and is appropriate for the stage of recovery. EXTREMITIES:? normal and no edema Incision: Covered by silver nitrate dressing, clean and dry. OB - PN: Obj Data Labs Labs: Laboratory Results - last 24 hr 01/02/25 05:37 HIV 1&2 Ab/P24 Ag 4thGn Reactive A OB - PN: A/P Delivery Assessment and Plan (1) : Status: Acute (2) Exercise-induced asthma: Status: Acute (3) Spontaneous onset of labor: Status: Acute (4) Lactating mother: Status: Acute Assessment and Plan: Struggling a bit, she would like to try pumping and bottle feeding. She would like to stay inpatient another night to work on this today. (5) care following delivery: Status: Acute Plan day: 2 Plan: routine care
--- NOTE | 2025-01-03 10:19 | P.DS_ITS ---
DS: Providers Provider Date Seen: 01/03/25 Date of admission: 01/01/25 06:48 Primary care physician: Not a Local Provider Admitting Clinician: Lucretia Toussaint MD Consults: 01/01/25 07:42 Consult to Html Developer [CONS] Routine Comment: Reason for Consult:: Substance Abuse Screening Attending Physician on discharge: MD Tina Date of Discharge: 01/03/25 DS: Diagnosis Discharge Diagnosis (1) care following delivery: Status: Acute (2) Lactating mother: Status: Acute (3) Anemia: Status: Acute Exam Narrative: Exam Narrative: GENERAL APPEARANCE:? normal affect, alert, no distress MOOD:? appropriate CHEST:? clear to auscultation HEART:? regular rate and rhythm ABDOMEN:? soft, non-tender the uterine fundus is At Umbilicus, Midline and is appropriate for the stage of recovery. EXTREMITIES:? normal and no edema Incision: Covered by silver nitrate dressing, clean and dry. Const: Vital Signs, click to edit/add: Vital Signs - 24 hr 01/02/25 11:55 01/02/25 16:10 01/02/25 23:39 Temperature 97.9 F 98 F 98.5 F Pulse Rate [Left P ulse Oximeter] 84 100 114 H Respiratory Rate 16 16 18 Blood Pressure [Ri ght Arm] 111/75 115/76 94/59 L Pulse Oximetry 98 97 98 Oxygen Delivery Me thod Room Air Room Air Room Air OB - DS: Summary Hospital Course Hospital Course: The patient is a 24 year old G 1P 1 at 39 3/7 weeks gestation that was admitted to the Center on 01/01/25 in labor for delivery. She had an emergency delivery due to nonreassuring heart rate. She delivered a viable female . She is pumping and breast feeding. the patient has done well. Peripartum Data delivery method: Primary C/S; Labored Laceration description: None Procedures: Procedures Operation Date: 01/01/25 16:45 Actual Procedure Side Surgeon p Emergent Section with splash prep for terminal bradycardia Ashleighjack Nieto MD complications: none [place] Gender: Female Infant Discharge Plan: Home Status at Discharge Functional status at discharge: independent ambulation Overall status at discharge: patient is progressing back to baseline Time Spent with Patient Time attestation: Total time spent providing and/or coordinating discharge services: Time spent: Less than 30 minutes Discharge Plan Discharge Disposition: Home, Self-Care Date of Admission: 01/01/25 06:48 Attending Provider on Discharge: Maria D Wilder Primary Care Provider: Provider,Not a Local Condition: Stable Anticipated Discharge Date/Time: 01/03/25 10:13 Discharge Medications: New acetaminophen 500 mg Tablet 1,000 mg PO Q6H PRN (Reason: Pain) Qty: 30 0RF docusate sodium 100 mg Capsule 100 mg PO DAILY Qty: 30 0RF ibuprofen 600 mg Tablet 600 mg PO Q6H PRN (Reason: Pain) Qty: 30 0RF oxycodone 5 mg Tablet 5 - 10 mg PO Q4H PRN (Reason: Pain) Qty: 10 0RF Continued [id number] 3 fatty no.1 27-1-300 mg capsule 1 cap PO DAILY ferrous sulfate 325 mg (65 mg iron) tablet 325 mg PO QMWF Qty: 30 0RF Discharge Orders: Discharge Order (Routine); Ordered 01/03/25 Ordered By: Maria D Wilder Patient Education: Bupivacaine Liposome (By injection), OB /Bottle Feeding Additional Instructions: FU in clinic in 1 week for silver nitrate dressing removal and incision check. FU in clinic in 6 weeks for regular visit. Activity Level: No Weight Bearing Activity Detail: Nothing vaginally for 6 weeks. Discharge Diet: Regular Follow Up Appointments: Provider,Not a Local [Primary Care Provider, Family Practice] Forms: MyHealth Info Instructions
[2025-01-03 16:11] VITALS: BP 115/75; PULSE 91; RESP 16; TEMP 36.6; O2SAT 98
[2025-01-06 08:42] LABS: HIV-1 Qnt NAAT copies/mL Not Detected (Not Detected)
== END 2025-01-03 17:30 | disposition home or self-care (01) | DRG 787 ==
LOC: OB OUT 06:48 → OB 06:48
PROVIDERS: Obstetrics & Gynecology; Admitting Provider Obstetrics & Gynecology; Visit Provider Obstetrics & Gynecology
PROC: 10D00Z1 Extraction of Products of Conception, Low, Open Approach (ICD-10-PCS; CPT 59514; principal; 2025-01-01 16:45)
DX: O99.214 Obesity complicating childbirth (principal); D62 Acute posthemorrhagic anemia; O76 Abnormality in fetal heart rate and rhythm complicating labor and delivery; O90.81 Anemia of the puerperium; E66.9 Obesity, unspecified; O99.324 Drug use complicating childbirth; F12.90 Cannabis use, unspecified, uncomplicated; F10.91 Alcohol use, unspecified, in remission; G89.18 Other acute postprocedural pain; J45.990 Exercise induced bronchospasm; Z3A.39 39 weeks gestation of pregnancy; Z37.0 Single live birth
CPT/HCPCS: 01967; 01968; 36415; 36600; 64488; 74018; 76942; 82803; 85018; 85025; 86592; 86701; 86702; 86703; 86850; 86900; 86901; 87535; 87538; 88307; 99140; A4314; A9270; J0330; J0456; J0665; J0666; J0690; J1100; J1650; J1885; J2270; J2371; J2405; J2590; J2704; J2795; J3010; J3105; J7050; J7120